=== PATIENT | male | born 1985 | race African-American/Black ===

== ENCOUNTER 2017-02-20 05:52 | Emergency (ER) | payer OTHER ==
[~2017-02-20] VITALS: Ht 175.3 cm; Wt 95.5 kg
[2017-02-20 05:58] VITALS: BP 160/81; PULSE 88; RESP 16; TEMP 98.5; O2SAT 98
[2017-02-20] MEDS ORDERED: LORA-474 PO (06:06)
[2017-02-20 06:32] VITALS: BP 147/68; PULSE 84; RESP 16; O2SAT 98
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
[2017-02-20] MEDS ORDERED: SODIUM CHLOR 0.9% 1000 ML INJ 1,000 ML IV ONE (06:45)
[2017-02-20] MEDS ORDERED: SODIUM CHLORIDE 0.9% FLUSH 10 ML FLUSH IVF PRN (06:45)
[2017-02-20 07:18] LABS: AUTOMATED NEUTROPHIL # 5.9 TH/MM3 (1.8-7.7); BASOPHIL # 0.1 TH/MM3 (0-0.2); BASOPHIL % 0.9 % (0.0-2.0); EOSINOPHIL # 0.1 TH/MM3 (0-0.4); EOSINOPHIL % 0.7 % (0.0-4.0); HEMATOCRIT 45.6 % (39.0-51.0); HEMO FLAGS DIFF FINAL; LYMPH % 26.7 % (9.0-44.0); LYMPHOCYTE # 2.4 TH/MM3 (1.0-4.8); MEAN CELL VOLUME 81.5 FL (80.0-100.0); MEAN CORPUSCULAR HEMOGLOBIN 27.4 PG (27.0-34.0); MEAN CORPUSCULAR HGB CONC 33.7 % (32.0-36.0); MONO % 6.9 % (0.0-8.0); NEUT % 64.8 % (16.0-70.0); PLATELET COUNT 225 TH/MM3 (150-450); RED CELL DISTRIBUTION WIDTH 13.8 % (11.6-17.2); WHITE BLOOD COUNT 9.1 TH/MM3 (4.0-11.0)
[2017-02-20 07:29] LABS: APTT (PATIENT) 21.6 SEC (24.3-30.1)
[2017-02-20 07:30] VITALS: BP 124/73; PULSE 82; RESP 18; TEMP 98.2; O2SAT 96
[2017-02-20 07:36] LABS: BICARBONATE 26.3 MEQ/L (21.0-32.0); POTASSIUM 3.8 MEQ/L (3.5-5.1)
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
[2017-02-20] MEDS ORDERED: IOHEXOL 350 MG/ML 10 ML VIAL (for RAD DIAG) IV PUSH ONE (08:49)
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
[2017-02-20] MEDS ORDERED: KETOROLAC TROMETHAMINE 30 MG/ML (IVP) VIAL IV PUSH ONE (09:45)
[2017-02-20] MEDS ORDERED: DIAZEPAM 5 MG TAB PO ONE (09:45)
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
[2017-02-20] MEDS ORDERED: MORPHINE SULFATE 4 MG/ML INJ IV PUSH ONE (10:30)
[2017-02-20] MEDS ORDERED: TYLE325T PO (10:35)
[2017-02-20 11:19] VITALS: BP 135/79
== END 2017-02-20 11:05 | disposition home or self-care (01) ==
LOC: NEPC 05:52
DX: M54.2 Cervicalgia (principal); R51 Headache; M54.9 Dorsalgia, unspecified; F41.9 Anxiety disorder, unspecified; F17.200 Nicotine dependence, unspecified, uncomplicated; V48.6XXA Car passenger injured in noncollision transport accident in traffic accident, initial encounter; Z79.899 Other long term (current) drug therapy
CPT/HCPCS: 70450; 71260; 72125; 72128; 74177; 80048; 80307; 85025; 85610; 85730; 86850; 86900; 86901; 96361; 96374; 96375; 99285; J1885; J2270; J7030; Q9967